=== PATIENT | male | born 1960 | race Caucasian/White ===

== ENCOUNTER → 2024-03-29 10:07 | Outpatient (REF) | payer MEDICARE, SELFPAY | LOC: HWRAD 10:07 | PROVIDERS: ATTENDING PHYSICIAN Internal Medicine | DX: M79.672 Pain in left foot (principal) | CPT/HCPCS: 73630 ==

== ENCOUNTER → 2025-03-23 06:23 | Outpatient (REF) | payer MEDICARE, SELFPAY ==
[2025-03-23 09:52] LABS: ALT (SGPT) 29 U/L (0-50); AST (SGOT) 30 U/L (17-59); Albumin 4.2 g/dl (3.5-5.0); Alkaline Phosphatase 56 U/L (38-126); Blood Urea Nitrogen 23 mg/dl (9-20); Calcium 10.1 mg/dl (8.4-10.2); Carbon Dioxide 31 mmol/L (22-30); Chloride 108 mmol/L (98-107); Glucose 93 mg/dl (70-99); HDL Cholesterol 56 mg/dl; LDL Cholesterol, Calculated 86 mg/dl; Potassium 4.7 mmol/L (3.5-5.1); Sodium 142 mmol/L (135-145); Total Bilirubin 0.8 mg/dl (0.2-1.3); Total Cholesterol 158 mg/dl (50-199); Total Protein 6.7 g/dl (6.3-8.2); Triglyceride 80 mg/dl (10-149); Very Low Density Lipoprotein 16 mg/dl (0-30); eGFR > 60.00
[2025-03-23 10:53] LABS: PSA, Total - Screen 0.74 ng/ml (0.0-4.0)
== END ==
LOC: HWLAB 06:23
PROVIDERS: ATTENDING PHYSICIAN Internal Medicine
DX: M79.672 Pain in left foot (principal); I49.3 Ventricular premature depolarization; E78.00 Pure hypercholesterolemia, unspecified; I44.0 Atrioventricular block, first degree; Z12.5 Encounter for screening for malignant neoplasm of prostate
CPT/HCPCS: 36415; 80053; 80061; G0103

== ENCOUNTER → 2025-07-14 06:33 | Outpatient (REF) | payer MEDICARE, SELFPAY ==
[2025-07-14 07:29] LABS: Blood Urea Nitrogen 25 mg/dl (9-20); Calcium 9.6 mg/dl (8.4-10.2); Carbon Dioxide 27 mmol/L (22-30); Chloride 106 mmol/L (98-107); Glucose 96 mg/dl (70-99); Potassium 4.4 mmol/L (3.5-5.1); Sodium 138 mmol/L (135-145); eGFR > 60.00
[2025-07-14 07:34] LABS: Hematocrit 43.6 % (39.0-52.0); Hemoglobin 15.0 g/dL (13.0-18.0); Mean Corp Hgb Conc. 34.4 g/dL (33.0-37.0); Mean Corpuscular Volume 92.4 fL (80.0-94.0); Platelet Count 175 10^3/uL (130-400); Red Cell Dist. Width 12.0 % (11.5-14.5)
== END ==
LOC: SDSPAT 06:33
PROVIDERS: ATTENDING PHYSICIAN Surgery; FAMILY PHYSICIAN Internal Medicine
DX: Z01.818 Encounter for other preprocedural examination (principal)
CPT/HCPCS: 36415; 80048; 85027; 93005

== ENCOUNTER 2025-07-24 06:27 | Day surgery (SDC) | payer MEDICARE, SELFPAY ==
[2025-07-17 13:23] VITALS: BMI 29.3
[2025-07-24] VITALS (7 sets, daily range): BP systolic 101–145; BP diastolic 75–92; BMI 29.3
[2025-07-24] MEDS: TYLENOL 1000 MG PO (08:07)
[2025-07-24] MEDS: NORMOSOL-R/PLASMALYTE-A 1000 IV (08:08)
--- NOTE | 2025-07-24 08:31 | HP.FOC2 ---
Focused History & Physical
Chief Complaint
HPI:
Chief Complaint: Bilateral inguinal hernias
HPI / Indication for Planned Procedure: Patient is a 65-year-old male recently seen in outpatient surgical evaluation secondary to a few month history of right inguinal swelling and occasional ache/discomfort. There is also visible swelling in the
left inguinal region but not to the degree of the right side. Examination confirmed the presence of bilateral reducible inguinal hernias right side larger than left. He presents today for scheduled operative correction
Relevant Past Medical History: Other (Hyperlipidemia, history of colon polyps)
Relevant Social History: Negative
Relevant Family History: Negative
Relevant Past Surgical History: Positive for (Open umbilical herniorrhaphy with mesh, ORIF right ankle fracture/right ankle replacement)
Review of Systems
Review of Pertinent Systems: All Systems Negative
Medication
See Medication form for detailed medications: Yes
Medication List (including Herbals & OTC):
cholecalciferol (vitamin D3) 50 mcg (2,000 unit) capsule (Vitamin D3) 50 mcg PO DAILY 07/19/25
multivitamin 1 tab PO DAILY 07/19/25
omega 7-ana-cib-fish oil 1,200 mg (144 mg-216 mg) capsule (Fish Oil) 1 cap PO BID 07/19/25
rosuvastatin 20 mg tablet 30 mg PO QPM 07/19/25
[id number] 18 mg-10 mg-45 mg-5 mg-250 mg tablet (B Complex w-Vit C) 1 tab PO DAILY 07/19/25
Medications Reviewed: Yes
Allergies and Reactions
Patient has Allergies: No
Noted Allergies and Reactions:
Allergy/AdvReac Type Severity Reaction Status Date / Time
No Known Allergies Allergy Verified 07/24/25 08:00
Pertinent Physical Exam
All Other Systems: Negative
Head/Neck: Normal
Lungs: Normal
Heart: Normal
Abdomen: Other (Bilateral inguinal hernias, reducible)
Extremities: Normal
Neurological: Normal
Diagnosis / Assessment
65-year-old male presenting for scheduled operative correction of bilateral inguinal hernias
Plan / Procedure
Robotic assisted laparoscopic repair of bilateral inguinal hernias with mesh
Anesthesia/Sedation to be done by Anesthesia Provider: Yes
--- NOTE | 2025-07-24 08:33 | W.SUR.PREOP ---
Pre-Operative Surgical Note
-
I have examined this patient prior to the performance of the scheduled procedure.
The patient's condition is unchanged from the time of the current History and
Physical and the patient is able to undergo the scheduled procedure.
--- NOTE | 2025-07-24 11:19 | W.IMMPOSTOP ---
Addendum entered and electronically signed by Ike Quintanilla MD 07/24/25 11:32:
#[id number]
Original Note:
Surgical Immed Post Op Note
-
Primary Surgeon: Ike Quintanilla MD
Assisting Surgeon: Za Bennett PA-C
Pre-op Diagnosis: Bilateral inguinal hernias
Post-op Diagnosis: Bilateral inguinal hernias; indirect
Procedure Performed: Robotic assisted laparoscopic LUCERO repair bilateral inguinal hernias with mesh; 3D max large mid weight x 2
Anesthesia Type: GETA + 0.25% Marcaine
Specimen / Cultures: None
Estimated Blood Loss: 12 mL
Complications: None immediate
Operative Findings: Right indirect inguinal hernia and lipoma of spermatic cord reduced/excised to facilitate mesh placement. 3D max large mid weight mesh repair.
Left indirect inguinal hernia and lipoma of spermatic cord reduced/excised to facilitate mesh placement. 3D max large mid weight mesh repair.
Omental adhesions to previous umbilical herniorrhaphy with mesh placed. No visceral adhesions noted.
The assistance of Za Bennett PA-C was required due to the complexity of the procedure. During the procedure Za Bennett PA-C assisted with port placement, robotic instrumentation and suture material exchanges, and closure of the surgical incision
sites. I was present for the entirety of the operative procedure.
== END 2025-07-24 13:15 | disposition home or self-care (01) ==
LOC: SDS 06:27
PROVIDERS: ATTENDING PHYSICIAN Surgery
DX: K40.20 Bilateral inguinal hernia, without obstruction or gangrene, not specified as recurrent (principal)
CPT/HCPCS: 49650; C1781